=== PATIENT | male | born 1955 | race Caucasian/White ===

== ENCOUNTER 2019-03-20 12:08 | Emergency (ER) | payer BC ==
[2019-03-20 12:39] VITALS: BP 135/77
--- NOTE | 2019-03-20 12:49 | UC ---
Respiratory Complaint HPI - HPI Summary HPI Summary: 64-year-old male with cold symptoms since Thursday (2 days). He denies any fever or chills however he had some body aches today right sided head congestion little bit of right-sided sinus pain and a nonproductive cough. He states he was around some grandchildren that were ill as well. - History of Current Complaint Chief Complaint: UCRespiratory Stated Complaint: COUGH,FEVER Time Seen by Provider: 03/20/19 12:28 Hx Obtained From: Patient Onset/Duration: Gradual Onset Timing: Intermittent Episodes Severity Initially: Mild Severity Currently: Mild Pain Intensity: 2 Character: Cough: Nonproductive Aggravating Factors: Nothing Alleviating Factors: Nothing Associated Signs And Symptoms: Positive: URI, Nasal Congestion, Sinus Discomfort - Right sided sinus discomfort. - Allergies/Home Medications Allergies/Adverse Reactions: Allergies Allergy/AdvReac Type Severity Reaction Status Date / Time No Known Allergies Allergy Verified 03/20/19 12:33 Home Medications: Home Medications Acetaminophen [Acetaminophen Extra Strength] 1,000 mg PO Q6H PRN 03/20/19 [ History Confirmed 03/20/19] Benzonatate CAP* [Tessalon 100 MG CAP*] 100 mg PO TID PRN 03/20/19 [History Confirmed 03/20/19] Fluticasone NASAL SPRAY 50MCG* [Flonase NASAL SPRAY 50MCG*] 2 spray BOTH NARES DAILY 03/20/19 [History Confirmed 03/20/19] Guaifenesin/Dextromethorphan [Mucinex Dm Maximum Streng 60-1200 mg] 1 tab PO Q12H PRN 03/20/19 [History Confirmed 03/20/19] Lisinopril TAB* [Prinivil TAB*] 5 mg PO DAILY 03/20/19 [History Confirmed ] Simvastatin TAB(NF) [Zocor(NF)] 10 mg PO DAILY 03/20/19 [History Confirmed 03/20] PMH/Surg Hx/FS Hx/Imm Hx Previously Healthy: Yes Cardiovascular History: Hypertension - Surgical History Surgical History: Yes Surgery Procedure, Year, and Place: Sinus, 1991, [place] - Family History Known Family History: Positive: Non-Contributory - Social History Alcohol Use: Occasionally Substance Use Type: None Smoking Status (MU): Never Smoked Tobacco Review of Systems All Other Systems Reviewed And Are Negative: Yes ENT: Positive: Sinus Congestion, Sinus Pain/Tenderness - Right sided maxillary pressure Respiratory: Positive: Cough - Nonproductive cough. Negative: Shortness Of Breath Is Patient Immunocompromised?: No Physical Exam Triage Information Reviewed: Yes Appearance: Well-Appearing, No Pain Distress, Well-Nourished Vital Signs: Initial Vital Signs Temp 101.6 F 03/20/19 12:30 Pulse 102 03/20/19 12:30 Resp 18 03/20/19 12:30 BP 135/77 03/20/19 12:30 Pulse Ox 99 03/20/19 12:30 Vital Signs Reviewed: Yes Eyes: Positive: Conjunctiva Clear ENT: Positive: Pharynx normal, Nasal congestion, Nasal drainage - Clear nasal coryza bilaterally, TM bulging - Right TM with moderate landmarks and clear fluid behind the tympanic membrane, Sinus tenderness - Right sided maxillary sinus tenderness, Uvula midline Neck exam: Normal Respiratory: Positive: Lungs clear, Normal breath sounds, No respiratory distress, No accessory muscle use Cardiovascular: Positive: No Murmur, Pulses Normal, Brisk Capillary Refill, Tachycardia Abdomen Description: Positive: Nontender, No Organomegaly, Soft Bowel Sounds: Positive: Present Musculoskeletal Exam: Normal Neurological Exam: Normal Psychological Exam: Normal Skin Exam: Normal Respiratory Course/Dx - Course Course Of Treatment: Chest x-ray:REPORT: Minimal linear atelectasis at the LEFT lung base. No focal pulmonary lesion, compelling alveolar consolidation, pleural effusion, pneumothorax. The heart, pulmonary vasculature, and mediastinal contours are unremarkable. IMPRESSION: #. No evidence for acute intrathoracic disease. Rapid flu test: Rapid flu test was negative Patient is to continue Tylenol every 4 hours and Motrin every 8 hours for fever , to increase fluids, to rest. Although the chest x-ray was read as negative, I am going to treated with a Z-Cris and a definite follow-up with his primary care provider in 2 or 3 days no improvement and deftly if continued fever. Patient is agreeable to this plan of action. - Differential Dx/Diagnosis Provider Diagnosis: Bronchitis Discharge - Sign-Out/Discharge Documenting (check all that apply): Patient Departure All imaging exams completed and their final reports reviewed: Yes - Discharge Plan Condition: Fair Disposition: HOME Prescriptions: Azithromyxin CRIS (NF) [Z-Cris (Zithromax) 250 mg tabs #6] 2 tab PO .TODAY, THEN 1 DAILY #6 tab Benzonatate CAP* [Tessalon 100 MG CAP*] 100 mg PO TID PRN #20 cap PRN Reason: Cough Patient Education Materials: Acute Bronchitis (ED) Referrals: Momo Knott MD [Primary Care Provider] - Additional Instructions: Increase fluids, follow-up with your primary care provider if no improvement in 3 or 4 days or if worsening symptoms. CXR:REPORT: Minimal linear atelectasis at the LEFT lung base. No focal pulmonary lesion, compelling alveolar consolidation, pleural effusion, pneumothorax. The heart, pulmonary vasculature, and mediastinal contours are unremarkable. IMPRESSION: #. No evidence for acute intrathoracic disease. Although the chest x-ray showed no evidence for acute intrathoracic disease, there is some streaking visible to me and after discussion with Dr. Sands I am going to treat the patient with a Z-Cris and see if that improves his illness. His rapid flu test was negative. - Billing Disposition and Condition Condition: FAIR Disposition: Home - Attestation Statements Provider Attestation: Per institutional requirements, I have reviewed the chart, however, I was not consulted specifically or made aware of this patient by the midlevel provider. I did not personally evaluate, interact with , or disposition this patient.
[2019-03-20 13:16] LABS: Influenza A Molecular NEGATIVE (Negative); Influenza B Molecular NEGATIVE (Negative)
== END 2019-03-20 13:34 | disposition home or self-care (01) ==
LOC: UCCORT 12:08
DX: J40 Bronchitis, not specified as acute or chronic (principal); I10 Essential (primary) hypertension; Z79.899 Other long term (current) drug therapy
CPT/HCPCS: 71046; 99202; G0463